=== PATIENT | female | born 1970 | race Caucasian/White ===

== ENCOUNTER 2021-01-31 15:57 | Emergency (ER) | payer BC ==
[~2021-01-31] VITALS: Ht 162.5 cm; Wt 81.8 kg
[~2021-01-31 15:57] MED LIST: CEVI30CA2 PO; CIPR-225 PO; DOXY100C42 PO; EST.625T PO; ESTR0.5T PO; HSCO125 SL; HYDR-4226 PO; HYDR1TAB PO; KETO10TA PO; ONDA-42 SL; ONDA4TAB8 PO; ONDA8TAB9 PO; OXYC1TAB87 PO; OXYQ1POW MC; PREMARIN; PRM25T PO; PROG100C3 PO; PROGESTERONE; PROP1TAB77 PO; TMSL.4C PO; TRAM-42 PO; VITAMIN D
[2021-01-31] MEDS ORDERED: PROCHLORPERAZINE 10 MG/2ML INJ (COMPAZINE) IV ONE (16:45)
[2021-01-31] MEDS ORDERED: diphenhydrAMINE 50 MG/ML INJ (BENADRYL) IVP ONE (16:45)
[2021-01-31] MEDS ORDERED: KETOROLAC 30 MG/ML VIAL IVP ONE (16:45)
--- NOTE | 2021-01-31 16:50 | ED Headache ---
General Chief Complaint: Head/Cervical Problems Stated Complaint: HEADACHE,NAUSEA Nursing Triage Note: AMB TO ROOM WITH C/O HEADACE AND VOMITING SINCE SUNDAY. HAS PMH OF HEADACHE BUT REPORTS THIS HEADACHE WORSE Nursing Sepsis Screen: No Definite Risk Source: patient, family Exam Limitations: no limitations History of Present Illness Date Seen by Provider: January 31, 2021 Time Seen by Provider: 16:00 Initial Comments Patient is a 50-year-old female who presents to the emergency department today with a chief complaint of severe right parieto-occipital headache. Patient states she started getting a headache gradually on Sunday. Patient states she took some ibuprofen and it seemed to improve. She was able to sleep Sunday night when she woke up Sunday she had recurrence of the headache with nausea and vomiting throughout the day. Patient states she is not taken anything since that ibuprofen on Sunday. She did take a little bit of Zofran last evening that she had leftover from prior prescription. She states she is continued to vomit and dry heaves today all day long. She denies any recent illnesses such as fevers, chills, sinus congestion or cough. No abdominal pain or chest pain. No other GI or symptoms except the vomiting. She states she has a history of migraines but this is very "different" and she rates it a "10". She denies any visual changes, double vision or visual loss. No hearing deficits. No problems with balance or coordination. She states she is a little dizzy when she stands. She tells me that she has a family history and multiple aunts on her mother side who had strokes at a young age. She denies any numbness, tingling or weakness in any of her extremities. All other review of systems reviewed and negative except as stated above. Timing/Duration: other (1 to 2 days) Severity/Quality: severe Location: occipital, parietal Prior Headaches/Recent Trauma: occasional headaches Associated Symptoms: nausea/vomiting Allergies and Home Medications Allergies Coded Allergies: Penicillins (Verified Allergy, Unknown, 12/25/06) morphine (Verified Allergy, Unknown, 01/31/21) Home Medications Cevimeline Hcl 30 Mg Capsule, 30 MG PO BID, (Reported) Ciprofloxacin HCl 500 Mg Tablet, 500 MG PO BID Prescribed by: ANICETO SCHRADER on 09/02/16 0548 Doxycycline Monohydrate 100 Mg Capsule, 100 MG PO BID, (Reported) Estradiol 0.5 Mg Tablet, 0.5 MG PO DAILY, (Reported) Ketorolac Tromethamine 10 Mg Tablet, 10 MG PO Q6H Prescribed by: ANICETO SCHRADER on 09/02/16547 Ondansetron 4 Mg Tab.rapdis, 4 MG PO Q4H Prescribed by: ANICETO SCHRADER on 09/02/16547 Tamsulosin HCl 0.4 Mg Cap, 0.4 MG PO DAILY Prescribed by: ANICETO SCHRADER on 09/02/16547 Tramadol HCl 50 Mg Tablet, 50 MG PO Q4H Prescribed by: ANICETO SCHRADER on 09/02/16547 Patient Home Medication List Home Medication List Reviewed: Yes Review of Systems Review of Systems Constitutional: see HPI Eyes: No Symptoms Reported Ears, Nose, Mouth, Throat: no symptoms reported Respiratory: no symptoms reported Cardiovascular: no symptoms reported Gastrointestinal: nausea, vomiting Genitourinary: no symptoms reported Musculoskeletal: no symptoms reported Skin: no symptoms reported Psychiatric/Neurological: Headache All Other Systems Reviewed Negative Unless Noted: Yes Past Nhlszhq-Dcltrn-Wswuno Hx Patient Social History Recent Infectious Disease Expo: No Recent Hopitalizations: No Seasonal Allergies Seasonal Allergies: No Past Medical History Surgeries: Yes (BONE SPUR REMOVAL. 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 0.0oz. 77.072428pb; 30.00 BMI Method:Stated General Appearance: WD/WN, no apparent distress HEENT: PERRL/EOMI, normal ENT inspection, TMs normal, pharynx normal Neck: non-tender, full range of motion, supple, normal inspection Cardiovascular: regular rate, rhythm Respiratory: lungs clear, normal breath sounds, no respiratory distress Gastrointestinal: non tender, soft Extremities: normal range of motion, non-tender, normal inspection, no pedal edema Psychiatric: alert, oriented x 3 Crainal Nerves: normal hearing, normal speech, PERRL Coordination/Gait: normal finger to nose, negative Romberg's sign Motor/Sensory: no motor deficit, no sensory deficit, no pronator drift Skin: normal color, warm/dry Progress/Results/Core Measures Results/Orders My Orders Orders - BONITA VILLAFANA MD Ct Head Wo (01/31/21 16:38) Prochlorperazine Injection (Compazine In (01/31/21 16:45) Diphenhydramine Injection (Benadryl Inje (01/31/21 16:45) Ketorolac Injection (Toradol Injection) (01/31/21 16:45) Medications Given in ED Current Medications Medications Dose Ordered Sig/Dmitriy Route Start Time Stop Time Status Last Admin Dose Admin Diphenhydramine HCl 25 mg ONCE ONCE IVP 01/31/21 16:45 01/31/21 16:46 DC 01/31/21 16:48 25 MG Ketorolac Tromethamine 15 mg ONCE ONCE IVP 01/31/21 16:45 01/31/21 16:46 DC 01/31/21 16:49 15 MG Prochlorperazine Edisylate 10 mg ONCE ONCE IV 01/31/21 16:45 01/31/21 16:46 DC 01/31/21 16:46 10 MG Vital Signs/I&O 01/31/21 16:00 Temp 36.6 Pulse 87 Resp 18 B/P (MAP) 202/94 (130) Pulse Ox 98 O2 Delivery Room Air Blood Pressure Mean: 130 Progress Progress Note : Time: 17:34 Progress Note Patient is feeling significantly improved. She has no more nausea at the moment. Her headache is gone. Patient will be discharged home with a prescription for Zofran to the [facility] [facility] as well as instructions on Aleve [id number]-[id number]. She is comfortable with this plan of care. All questions have been sought and answered. Patient is stable for discharge. Diagnostic Imaging Diagonstic Imaging: CT Plain Films/CT/US/NM/MRI: head Comments [facility] [place], [place] NAME: FIORELLA VASQUEZ [facility] REC#: [id number] PT STATUS: REG ER : 1970 PHYSICIAN: BONITA VILLAFANA MD ADMIT DATE: 01/31/21/ER Draft Date of Exam:01/31/21 CT HEAD WO PROCEDURE: CT head without contrast. TECHNIQUE: Multiple contiguous axial images were obtained through the brain without the use of intravenous contrast. Auto Exposure Controls were utilized during the CT exam to meet ALARA standards for radiation dose reduction. INDICATION: Headache. FINDINGS: The ventricles and sulci are within normal limits. There is no hydrocephalus or cerebral edema. There is no midline shift or mass effect. There is no intracranial mass, hemorrhage, or extra-axial fluid collection. The visualized paranasal sinuses and mastoid air cells are clear. There are no regional areas of decreased attenuation appreciated to suggest an acute CVA. IMPRESSION: No acute intracranial abnormality. Dictated on workstation # [id number] Dict: 01/31/21 1722 Trans: 01/31/21 1724 [facility] [id number] Interpreted by: KRISTEN FLORES MD Electronically signed by: Departure Impression Primary Impression: Headache Disposition: 01 HOME, SELF-CARE Condition: Stable Departure-Patient Inst. Referrals: PATRICE DAVIS MD (PCP/Family) Primary Care Physician Patient Instructions: Headache, Adult (DC) Add. Discharge Instructions: Drink plenty of fluids to stay well-hydrated. Take the Zofran 1 every 8 hours as needed for nausea. Ttsm-zby-cfrylah Aleve, 2 pills in the morning with food and 2 pills at night with food as needed for headache. Please call and follow-up with Dr. Davis as needed. Scripts Ondansetron (Ondansetron Odt) 4 Mg Tab.rapdis 4 MG PO Q8H PRN for nausea, #20 TAB Prov: BONITA VILLAFANA MD 01/31/21 Copy Copies To 1: PATRICE DAVIS MD, KATHRYN M MD January 31, 2021 16:50
--- NOTE | 2021-01-31 17:24 | Diagnostic Imaging Report ---
PROCEDURE: CT head without contrast. TECHNIQUE: Multiple contiguous axial images were obtained through the brain without the use of intravenous contrast. Auto Exposure Controls were utilized during the CT exam to meet ALARA standards for radiation dose reduction. INDICATION: Headache. FINDINGS: The ventricles and sulci are within normal limits. There is no hydrocephalus or cerebral edema. There is no midline shift or mass effect. There is no intracranial mass, hemorrhage, or extra-axial fluid collection. The visualized paranasal sinuses and mastoid air cells are clear. There are no regional areas of decreased attenuation appreciated to suggest an acute CVA. IMPRESSION: No acute intracranial abnormality. Dictated by: Dictated on workstation # [id number]
[2021-01-31] MEDS ORDERED: ONDA4TAB11 PO (17:35)
[2021-01-31 17:52] VITALS: BP 154/77
== END 2021-01-31 17:51 | disposition home or self-care (01) ==
LOC: EDUNIT# 15:57 → ER 15:58
DX: R51.9 Headache, unspecified (principal); M35.00 Sjogren syndrome, unspecified; Z79.899 Other long term (current) drug therapy; Z86.69 Personal history of other diseases of the nervous system and sense organs
CPT/HCPCS: 70450

== ENCOUNTER 2021-03-10 09:11 | Outpatient (CLI) | payer BC ==
[~2021-03-10] VITALS: Ht 162.6 cm; Wt 81.8 kg
[~2021-03-10 09:11] MED LIST changes: +ONDA4TAB11 PO
[2021-03-10] MEDS ORDERED: CASIRIVIMAB/IMDEVIMAB 1,200 MG in NS (IVPB) 250 ML IV ONE (09:15)
[2021-03-10] MEDS ORDERED: EPINEPHrine INJECTION 1 MG/ML AMP IM PRN (09:15)
[2021-03-10] MEDS ORDERED: diphenhydrAMINE 50 MG/ML INJ (BENADRYL) IV PRN (09:15)
[2021-03-10 09:57] VITALS: BP 149/88
[2021-03-10 10:40] VITALS: BP 142/81
== END 2021-03-10 11:00 | disposition home or self-care (01) ==
LOC: INFUSION 09:11
PROVIDERS: ATTEND Nurse Practitioner Family
DX: Z23 Encounter for immunization (principal); U07.1 COVID-19

== ENCOUNTER → 2023-06-29 | Outpatient (CLI) | payer BC ==
--- NOTE | 2023-06-29 12:23 | Diagnostic Imaging Report ---
Indication: Routine screening Comparison: No prior mammograms are available for comparison. 2-D and 3-D bilateral screening mammography was performed with CAD. Both breasts are heterogeneously dense, limiting the sensitivity of mammography. There is a circumscribed density in the medial aspect of the right breast approximately 6-8 cm from the nipple. This projects just below the nipple line on the MLO view, at approximately the 3 to 4 clock location. The left breast is unremarkable. No malignant-appearing microcalcifications are seen. Axillae are unremarkable. IMPRESSION: BI-RADS 0. Circumscribed nodular density in the lower inner right breast approximately 6 to 8 cm from the nipple. Further evaluation with ultrasound is recommended. ACR BI-RADS Category 0: Incomplete. (Needs additional imaging evaluation). Result letter will be mailed to the patient. Note: At least 10% of breast cancer is not imaged by mammography. Dictated by: Dictated on workstation # [id number]
== END ==
LOC: RAD 07:30
PROVIDERS: ATTEND Nurse Practitioner Family
DX: Z12.31 Encounter for screening mammogram for malignant neoplasm of breast (principal); N63.14 Unspecified lump in the right breast, lower inner quadrant
CPT/HCPCS: 77063; 77067

== ENCOUNTER → 2023-07-19 | Outpatient (CLI) | payer BC ==
[~2023-07-19] MED LIST changes: -ESTR0.5T PO; +ESTR0.5T2 PO
--- NOTE | 2023-07-19 14:05 | Diagnostic Imaging Report ---
INDICATION: Abnormal mammogram. Study is performed for further evaluation. Correlation is made with recent screening mammogram from 06/29/2023. Sonographic interrogation of the inner portion of the right breast was performed. No discrete solid or cystic mass is identified to account for the circumscribed density noted in the medial right breast on recent mammography. There is some mild ductal dilatation at the 3-4 o'clock location of the right breast which could potentially account for the mammographic density. No suspicious masses are identified. IMPRESSION: BI-RADS Category 3 No suspicious solid or cystic masses identified sonographically. There is some mild ductal dilatation in the medial right breast. Even so, follow-up right mammogram in 6 months is recommended to show continued stability. ACR BI-RADS Category 3: Probably benign findings. Dictated by: Dictated on workstation # [id number]
== END ==
LOC: RAD 08:45
PROVIDERS: ATTEND Nurse Practitioner
DX: N60.41 Mammary duct ectasia of right breast (principal); R92.8 Other abnormal and inconclusive findings on diagnostic imaging of breast

== ENCOUNTER 2023-07-27 10:20 | Emergency (ER) | payer BC ==
[~2023-07-27] VITALS: Ht 162 cm; Wt 77.0 kg
--- NOTE | 2023-07-27 11:13 | ED EENT ---
History of Present Illness General Chief Complaint: Dental Problems/Pain Stated Complaint: TOOTH PAIN Nursing Triage Note: PT AMB TO FT WITH SPOUSE WITH C/O POSS L MOLAR ABSCESS. PT STATES THE PAIN BEGAN YESTERDAY Source: patient Exam Limitations: no limitations History of Present Illness Date Seen by Provider: Jul 27, 2023 Time Seen by Provider: 11:06 Initial Comments 53-year-old female presents to the ER with complaint of left lower molar dental pain starting Sunday night, 07/25/23. Reports that she had pain approximately 1 week ago, but states that it had improved and then returned on Sunday. She reports a low-grade fever of 100.1 this morning. She took a hydrocodone this morning which has not provided relief. She is also complaining of nausea due to taking the hydrocodone on empty stomach. Allergies and Home Medications Allergies Coded Allergies: Penicillins (Verified Allergy, Unknown, 12/25/06) morphine (Verified Allergy, Unknown, 01/31/21) Patient Home Medication List Home Medication List Reviewed: Yes Cevimeline Hcl (Evoxac) 30 Mg Capsule, 30 MG PO BID, (Reported) Entered as Reported by: ARIAN PATINO on 03/20/13 1515 Ciprofloxacin HCl (Cipro) 500 Mg Tablet, 500 MG PO BID Prescribed by: ANICETO SCHRADER on 09/02/16 0548 Clindamycin HCl (Clindamycin HCl) 150 Mg Capsule, 450 MG PO TID Prescribed by: Christina Muniz on 07/27/23 1158 Doxycycline Monohydrate (Doxycycline) 100 Mg Capsule, 100 MG PO BID, (Reported) Entered as Reported by: NILSON BOCANEGRA on 08/29/14 1650 Estradiol (Estradiol Tablet) 0.5 Mg Tablet, 0.5 MG PO DAILY, (Reported) Entered as Reported by: SEBASTIÁN SLATER on 09/02/16 0403 Ketorolac Tromethamine (Ketorolac Tromethamine) 10 Mg Tablet, 10 MG PO Q6H Prescribed by: ANICETO SCHRADER on 09/02/16 0548 Ondansetron (Zofran Odt) 4 Mg Tab.rapdis, 4 MG PO Q4H Prescribed by: ANICETO SCHRADER on 09/02/16 0548 Ondansetron (Ondansetron Odt) 4 Mg Tab.rapdis, 4 MG PO Q8H PRN for nausea Prescribed by: BONITA VILLAFANA on 01/31/21 1735 Ondansetron (Ondansetron Odt) 4 Mg Tab.rapdis, 4 MG SL Q4H PRN for NAUSEA/VOMITING Prescribed by: Christina Muniz on 07/27/23 1158 Tamsulosin HCl (Flomax) 0.4 Mg Cap, 0.4 MG PO DAILY Prescribed by: ANICETO SCHRADER on 09/02/16 0548 Tramadol HCl (Ultram) 50 Mg Tablet, 50 MG PO Q4H Prescribed by: ANICETO SCHRADER on 09/02/16 0548 Tramadol HCl (Tramadol HCl) 50 Mg Tablet, 50 MG PO Q6H Prescribed by: Christina Muniz on 07/27/23 1159 Review of Systems Review of Systems Constitutional: see HPI Past Bqtptkx-Bketcf-Gywrck Hx Patient Social History Tobacco Use?: No Use of E-Cig and/or Vaping dev: No Substance use?: No Alcohol Use?: Yes Alcohol Frequency: Rarely Pt feels they are or have been: No Immunizations Up To Date Influenza Vaccine Up-to-Date: No; Not Current Seasonal Allergies Seasonal Allergies: No Past Medical History Surgery/Hospitalization HX: shogrens hysto, appy, radha Surgeries: Yes (BONE SPUR REMOVAL. 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 0.0oz. 77.682931ni; 29.00 BMI Method:Stated General Appearance: WD/WN, mild distress Mouth/Throat: dental tenderness (No area of fluctuance noted) Neck: supple, normal inspection Cardiovascular: regular rate, rhythm Respiratory: lungs clear, normal breath sounds, no respiratory distress, no accessory muscle use Neurologic/Psychiatric: alert, normal mood/affect Skin: normal color, warm/dry Procedures/Interventions Progress Inferior alveolar nerve block performed. HurriCaine spray applied prior to injection. 2.5 mL of 1:1 ratio of bupivacaine and lidocaine administered. Progress/Results/Core Measures Results/Orders My Orders Orders - CHRISTINA RODRIGUEZ APRN Ondansetron Oral Dissolve Tab (Ondanset (07/27/23 11:15) Bupivacaine 0.25% 30 Ml Inj (Bupivacaine (07/27/23 11:15) Bupivacaine 0.5% 30 Ml Inj (Bupivacaine (07/27/23 11:14) Ondansetron Injection (Ondansetron Inj (07/27/23 11:30) Medications Given in ED Current Medications Medications Dose Ordered Sig/Dmitriy Route Start Time Stop Time Status Last Admin Dose Admin Bupivacaine HCl 30 ml STK-MED ONCE .ROUTE 07/27/23 11:14 07/27/23 11:18 DC 07/27/23 11:36 10 ML Ondansetron HCl 4 mg ONCE ONCE IM 07/27/23 11:30 07/27/23 11:31 DC 07/27/23 11:37 4 MG Ondansetron HCl 4 mg ONCE ONCE PO 07/27/23 11:15 07/27/23 11:16 DC 07/27/23 11:15 4 MG Vital Signs/I&O 07/27/23 07/27/23 10:38 12:10 Temp 36.1 36.1 Pulse 76 70 Resp 16 16 B/P (MAP) 193/83 (119) 185/80 Pulse Ox 99 97 O2 Delivery Room Air Room Air Blood Pressure Mean: 119 Progress Progress Note : Progress Note Patient seen and evaluated, resting in recliner, mild distress. This is likely a dental abscess, although I could not palpate an area of fluctuance. Patient would like me to do a dental block. Zofran ordered for nausea. 1155 inferior alveolar dental block performed. Patient reported that her jaw became numb, but she still having some throbbing pain at the lower left molar. Will discharge with antibiotic, clindamycin, Zofran, and tramadol. Patient is stable for discharge. Discharge instructions and return precautions provided. Departure Impression Primary Impression: Dental abscess Disposition: 01 HOME, SELF-CARE Condition: Stable Departure-Patient Inst. Decision time for Depature: 11:55 Referrals: PATRICE BUSH MD (PCP/Family) Primary Care Physician Patient Instructions: Tooth Abscess (DC) Add. Discharge Instructions: Complete full course of antibiotic as prescribed. Take Zofran as needed for nausea. It can cause constipation. Take tramadol for pain. It can also cause constipation. It may make you sleepy. Follow-up with your dentist on Sunday. Return for any new, concerning, or worsening symptoms. All discharge instructions reviewed with patient and/or family. Voiced understanding. Scripts Tramadol HCl (Tramadol HCl) 50 Mg Tablet 50 MG PO Q6H, #10 TAB 0 Refills Prov: CHRISTINA RODRIGUEZ APRN 07/27/23 Ondansetron (Ondansetron Odt) 4 Mg Tab.rapdis 4 MG SL Q4H PRN for NAUSEA/VOMITING, #10 TAB 0 Refills Prov: CHRISTINA RODRIGUEZ APRN 07/27/23 Clindamycin HCl (Clindamycin HCl) 150 Mg Capsule 450 MG PO TID for 10 Days, #90 CAP 0 Refills Prov: CHRISTINA RODRIGUEZ APRN 07/27/23 CHRISTINA RODRIGUEZ APRN Jul 27, 2023 11:13
[2023-07-27] MEDS ORDERED: BUPIVACAINE 0.5% 30 ML VIAL ONE (11:14)
[2023-07-27] MEDS ORDERED: BUPIVACAINE 0.25% 30 ML VIAL INJ ONE (11:15)
[2023-07-27] MEDS ORDERED: ONDANSETRON 4 MG ORAL DISSOLVE TABLET PO ONE (11:15)
[2023-07-27] MEDS ORDERED: ONDANSETRON INJECTION 4 MG/2 ML (SDV) IM ONE (11:30)
[2023-07-27] MEDS ORDERED: ONDA4TAB11 SL (11:58)
[2023-07-27] MEDS ORDERED: CLIN150C20 PO (11:58)
[2023-07-27] MEDS ORDERED: TRAM50TA3 PO (11:58)
[2023-07-27 12:10] VITALS: BP 185/80
== END 2023-07-27 12:11 | disposition home or self-care (01) ==
LOC: EDUNIT# 10:20 → ER 10:22
DX: K04.7 Periapical abscess without sinus (principal); R11.0 Nausea; Z88.0 Allergy status to penicillin; Z88.5 Allergy status to narcotic agent
CPT/HCPCS: 99284